=== PATIENT | female | born 2000 | race American Indian/Alaskan Native ===

== ENCOUNTER 2020-11-24 14:44 | Outpatient (CLI) | payer MEDICAID ==
[2020-11-24] MEDS ORDERED: LACTATED RINGERS 1,000 ML ONE (15:43)
[2020-11-24 15:57] VITALS: BP 125/76
[2020-11-24] MEDS ORDERED: LACTATED RINGERS 500 ML IV ONE (16:15)
[2020-11-24] MEDS ORDERED: PROMETHAZINE 25 MG TAB PO PRN (16:19)
[2020-11-24 16:31] LABS: Bacteria,Urine 1+ /HPF (Negative); Bilirubin,Urine NEG (Negative); Blood,Urine NEG (Negative); Color,Urine Yellow (Yellow); Mucus,Urine FEW /HPF; Protein,Urine <15 mg/dL mg/dL (Negative)
== END 2020-11-24 17:04 | disposition home or self-care (01) ==
LOC: TRG 14:44 → APU 14:48 → TRG 17:04
PROVIDERS: ATTEND Obstetrics & Gynecology
DX: O60.02 Preterm labor without delivery, second trimester (principal); Z3A.24 24 weeks gestation of pregnancy
CPT/HCPCS: 81001; J7120

== ENCOUNTER 2021-01-01 18:06 | Outpatient (CLI) | payer MEDICAID ==
[2021-01-01] MEDS ORDERED: LACTATED RINGERS 1,000 ML IV ONE (18:37)
[2021-01-01] MEDS ORDERED: ONDANSETRON 4 MG/2 ML INJ IV ONE (19:19)
[2021-01-01 19:22] LABS: Hematocrit 35.1 % (30.3-42.9); Hemoglobin 12.1 gm/dl (10.1-14.3); Mean Corpuscular HGB Conc 34 % (30-34); Mean Corpuscular Volume 86 fl (79-97); Platelet Count 180 K/mm3 (140-440); Red Cell Distribution Width 14.1 % (13.2-15.2)
[2021-01-01 19:25] LABS: Bacteria,Urine 2+ /HPF (Negative); Bilirubin,Urine NEG (Negative); Blood,Urine NEG (Negative); Color,Urine Amber (Yellow); Hyaline Casts,Urine 1 /LPF; Mucus,Urine FEW /HPF
[2021-01-01 20:00] LABS: Band Neutrophils # (Manual) 0.1 K/mm3; Total Cells Counted 100
[2021-01-01 20:01] LABS: Platelet Estimate Consistent w Auto; RBC Morphology Normal; Toxic Granulation 1+
[2021-01-01 20:09] LABS: Alanine Aminotransferase 17 units/L (7-56); Albumin 3.7 g/dL (3.9-5); Blood Urea Nitrogen 7 mg/dL (7-17); Calcium 9.1 mg/dL (8.4-10.2); Hemolysis Index 26
[2021-01-01 20:13] LABS: BUN/Creatinine Ratio 12
[2021-01-01] MEDS ORDERED: TERBUTALINE 1 MG/1 ML INJ SUB-Q ONE (20:21)
[2021-01-01 20:43] VITALS: BP 121/80
== END 2021-01-01 21:40 | disposition home or self-care (01) ==
LOC: TRG 18:06 → APU 18:07 → TRG 21:40
PROVIDERS: ATTEND Obstetrics & Gynecology
DX: O21.2 Late vomiting of pregnancy (principal); R19.7 Diarrhea, unspecified; R42 Dizziness and giddiness; O26.893 Other specified pregnancy related conditions, third trimester; M54.5 Low back pain; R10.30 Lower abdominal pain, unspecified; R51.9 Headache, unspecified; Z3A.29 29 weeks gestation of pregnancy
CPT/HCPCS: 36415; 59025; 80053; 81001; 85025; 87086; 96361; 96365; 96367; 96372; J0690; J2405; J3105; J7120; 85007; 96360

== ENCOUNTER 2021-01-15 05:14 | Outpatient (CLI) | payer MEDICAID ==
[2021-01-15] MEDS ORDERED: LACTATED RINGERS 1,000 ML IV ONE (05:56)
[2021-01-15 06:41] LABS: Basophils # (Auto) 0.1 K/mm3 (0.0-0.1); Basophils % (Auto) 0.4 % (0.0-1.8); Eosinophils # (Auto) 0.1 K/mm3 (0.0-0.4); Eosinophils % (Auto) 0.6 % (0.0-4.3); Hematocrit 35.2 % (30.3-42.9); Hemoglobin 12.4 gm/dl (10.1-14.3); Lymphocytes # (Auto) 1.2 K/mm3 (1.2-5.4); Lymphocytes % (Auto) 9.2 % (13.4-35.0); Mean Corpuscular HGB Conc 35 % (30-34); Mean Corpuscular Volume 87 fl (79-97); Monocytes # (Auto) 0.7 K/mm3 (0.0-0.8); Monocytes % (Auto) 5.3 % (0.0-7.3); Platelet Count 146 K/mm3 (140-440); Red Blood Count 4.07 M/mm3 (3.65-5.03); Red Cell Distribution Width 13.9 % (13.2-15.2)
--- NOTE | 2021-01-15 07:16 | Ultrasound Report ---
Biophysical profile Limited abdominal ultrasound FINDINGS: Single live intrauterine in cephalic position with heart rate 1 47 bpm. BARBARA measures 9.8. 31 weeks 3 days. Placenta is anterior. Biophysical profile is 8 out of 8 IMPRESSION: Single live intrauterine . Biophysical profile 8 out of 8. Signer Name: Renny Murillo MD Signed: 01/15/2021 7:12 AM Workstation Name: [id number]
[2021-01-15 07:41] VITALS: BP 120/89
== END 2021-01-15 09:54 | disposition home or self-care (01) ==
LOC: TRG 05:14 → APU 05:14 → TRG 09:54
PROVIDERS: ATTEND Obstetrics & Gynecology
DX: O26.893 Other specified pregnancy related conditions, third trimester (principal); W19.XXXA Unspecified fall, initial encounter; Y93.89 Activity, other specified; Y92.89 Other specified places as the place of occurrence of the external cause; Y99.8 Other external cause status; Z3A.31 31 weeks gestation of pregnancy
CPT/HCPCS: 36415; 59025; 76815; 76819; 85025; 86850; 86900; 86901

== ENCOUNTER 2021-02-14 11:58 | Outpatient (CLI) | payer MEDICAID ==
[2021-02-14] MEDS ORDERED: LACTATED RINGERS 500 ML IV ONE (13:20)
[2021-02-14 14:59] LABS: Alanine Aminotransferase 12 units/L (7-56); Uric Acid 5.5 mg/dL (3.5-7.6)
[2021-02-14 15:00] LABS: Color,Urine Amber (Yellow)
[2021-02-14 15:01] LABS: Bilirubin,Urine Negative (Negative); Blood,Urine Negative (Negative)
[2021-02-14 15:02] LABS: Bacteria,Urine 1+ /HPF (Negative); Mucus,Urine FEW /HPF
[2021-02-14 15:25] LABS: Basophils % (Auto) 0.2 % (0.0-1.8); Eosinophils # (Auto) 0.1 K/mm3 (0.0-0.4); Eosinophils % (Auto) 0.7 % (0.0-4.3); Hematocrit 34.6 % (30.3-42.9); Hemoglobin 11.9 gm/dl (10.1-14.3); Lymphocytes # (Auto) 1.6 K/mm3 (1.2-5.4); Lymphocytes % (Auto) 13.5 % (13.4-35.0); Mean Corpuscular HGB Conc 35 % (30-34); Mean Corpuscular Volume 86 fl (79-97); Monocytes # (Auto) 0.5 K/mm3 (0.0-0.8); Monocytes % (Auto) 4.3 % (0.0-7.3); Platelet Count 141 K/mm3 (140-440); Red Blood Count 4.04 M/mm3 (3.65-5.03); Red Cell Distribution Width 14.1 % (13.2-15.2)
[2021-02-14 16:12] VITALS: BP 137/84
== END 2021-02-14 16:42 | disposition home or self-care (01) ==
LOC: TRG 11:58 → APU 11:59 → TRG 16:42
PROVIDERS: ATTEND Obstetrics & Gynecology
DX: O13.3 Gestational [pregnancy-induced] hypertension without significant proteinuria, third trimester (principal); Z3A.35 35 weeks gestation of pregnancy
CPT/HCPCS: 36415; 81001; 82565; 83615; 84450; 84460; 84550; 85025; 86850; 86900; 86901; 87086

== ENCOUNTER 2021-02-16 11:33 | Inpatient (IN) | payer MEDICAID ==
[2021-02-16] MEDS ORDERED: OXYTOCIN DRIP 30 UNITS/500 ML BAG IV SCH (12:00)
[2021-02-16] MEDS ORDERED: LACTATED RINGERS 1,000 ML IV SCH (12:00)
[2021-02-16] MEDS ORDERED: ACETAMINOPHEN 325 MG TAB PO PRN (12:30)
[2021-02-16] MEDS ORDERED: LOPERAMIDE 2 MG CAP PO PRN (12:30)
[2021-02-16] MEDS ORDERED: miSOPROStol 200 MCG TAB PR PRN (12:30)
[2021-02-16] MEDS ORDERED: ONDANSETRON 4 MG/2 ML INJ IV PRN (12:30)
[2021-02-16] MEDS ORDERED: BUTORPHANOL 2 MG/1 ML INJ IV PRN (12:30)
[2021-02-16] MEDS ORDERED: ePHEDrine SULFATE 50 MG/1 ML INJ IV PRN (12:30)
[2021-02-16] MEDS ORDERED: NalbUPHINE 10 MG/1 ML INJ IV PRN (12:30)
[2021-02-16] MEDS ORDERED: LIDOCAINE (2%) 20 MG/1 ML VIAL 20 ML MDV INFILTRATI SCH (12:30)
[2021-02-16] MEDS ORDERED: CARBOPROST TROMETHAMINE 250 MCG/1 ML INJ IM PRN (12:30)
[2021-02-16] MEDS ORDERED: METHYLERGONOVINE MALEATE 0.2 MG/ML VIAL IM PRN (12:30)
[2021-02-16] MEDS ORDERED: AMPICILLIN/NS 2 GM/100 ML 2 GM/100 ML BAG IV SCH (12:30)
[2021-02-16] MEDS ORDERED: MINERAL OIL 30 ML ORAL LIQD PO PRN (12:30)
[2021-02-16] MEDS ORDERED: TERBUTALINE 1 MG/1 ML INJ SUB-Q PRN (12:30)
[2021-02-16] MEDS ORDERED: OXYTOCIN 10 UNIT/1 ML INJ IM PRN (12:30)
[2021-02-16 13:27] LABS: Hemoglobin 12.4 gm/dl (10.1-14.3); Mean Corpuscular HGB Conc 34 % (30-34); Mean Corpuscular Volume 86 fl (79-97); Platelet Count 147 K/mm3 (140-440); Red Cell Distribution Width 14.6 % (13.2-15.2)
[2021-02-16 13:42] LABS: Alanine Aminotransferase 14 units/L (7-56); Albumin 3.7 g/dL (3.9-5); Blood Urea Nitrogen 8 mg/dL (7-17); Calcium 9.5 mg/dL (8.4-10.2); Hemolysis Index 2
[2021-02-16 13:43] LABS: BUN/Creatinine Ratio 16; Bilirubin,Direct < 0.2 mg/dL (0-0.2)
[2021-02-16] MEDS ORDERED: DINOPROSTONE 10 MG VAG SUPP VG ONE (14:42)
--- NOTE | 2021-02-16 16:10 | History and Physical Report ---
History of Present Illness Date of examination: 02/16/21 Date of admission: 02/16/21 11:33 Chief complaint: IOL secondary to PIH History of present illness: 20yo, @ 36 wks, initiated care with [facility] at 9 weeks gestation. Her has been complicated by H/O Hodgkin's Lymphoma (S/P chemo and stem cell transplant with recurrence in 2018, in remission, followed by PATRICK), and obesity (co-managed by JEFFERY). She was sent to [facility] from [facility] with recommendations for IOL secondary to elevated B/Ps. Reports +FM. Denies any VB or LOF. Labs: B+, antibody negative; rubella immune; HBsAg negative; HIV negative; GC/Chlamydia/Trich negative; VDRL negative; Hep CAb negative; 1 hr gtt - 86; GBS negative. Past History Past Medical History: other (Hodgkins Lymphoma: 03/2018) Past Surgical History: [employer]/uterine surgery, other (Chemo therapy; Dory cath) Family/Genetic History: diabetes (MGM) Social history: single, full code. denies: smoking, alcohol abuse, prescription drug abuse, IV drug use - Obstetrical History Expected Date of Delivery: 03/16/21 Actual Gestation: 36 Week(s) 0 Day(s) : 2 Para: 0 Hx # Term Pregnancies: 0 Number of Pregnancies: 0 Spontaneous Abortions: 1 Induced : 0 Number of Living Children: 0 Medications and Allergies Allergies Allergy/AdvReac Type Severity Reaction Status Date / Time biocclusive Allergy Severe Hives Uncoded 02/14/21 12:19 Active Meds: Active Medications Acetaminophen (Acetaminophen 325 Mg Tab) 650 mg PO Q4H PRN PRN Reason: Pain, Mild (1-3) Butorphanol Tartrate (Butorphanol 2 Mg/1 Ml Inj) 2 mg IV Q2H PRN PRN Reason: Pain , Severe (7-10) Carboprost Tromethamine (Carboprost Tromethamine 250 Mcg/1 Ml Inj) 250 mcg IM ONCE PRN PRN Reason: Uterine Bleeding Ephedrine Sulfate (Ephedrine Sulfate 50 Mg/1 Ml Inj) 10 mg IV Q2M PRN PRN Reason: Hypotension Fentanyl (Fentanyl 100 Mcg/2 Ml Inj) 100 mcg IV Q2H PRN PRN Reason: Pain,Severe (7-10) LABOR PAIN Hydralazine HCl (Hydralazine 20 Mg/1 Ml Inj) 5 mg IV Q30MIN PRN PRN Reason: Hypertension Lactated Ringer's (Lactated Ringers) 1,000 mls @ 125 mls/hr IV DIRECT ISHAN Oxytocin/Sodium Chloride (Pitocin/Ns 30 Unit/500ml) 30 units in 500 mls @ 40 mls/hr IV TITR ISHAN; Protocol Ampicillin Sodium (Ampicillin/Ns 1 Gm/50 Ml) 1 gm in 50 mls @ 100 mls/hr IV Q4H ISHAN; Protocol Lidocaine (Lidocaine (2%) 20 Mg/1 Ml Vial 20 Ml Mdv) 20 ml INFILTRATI ONCE ISHAN Stop: 02/17/21 12:29 Loperamide HCl (Loperamide 2 Mg Cap) 2 mg PO ONCE PRN PRN Reason: give with Hemabate Methylergonovine Maleate (Methylergonovine Maleate 0.2 Mg/Ml Vial) 0.2 mg IM ONCE PRN PRN Reason: Uterine Bleeding Mineral Oil (Mineral Oil 30 Ml Oral Liqd) 30 ml PO QHS PRN PRN Reason: Constipation Misoprostol (Misoprostol 200 Mcg Tab) 800 mcg IA ONCE PRN PRN Reason: Uterine Bleeding Nalbuphine HCl (Nalbuphine 10 Mg/1 Ml Inj) 10 mg IV Q2H PRN PRN Reason: Pain, Moderate (4-6) Ondansetron HCl (Ondansetron 4 Mg/2 Ml Inj) 4 mg IV Q8H PRN PRN Reason: Nausea And Vomiting Oxytocin (Oxytocin 10 Unit/1 Ml Inj) 10 unit IM ONCE PRN PRN Reason: Uterine Bleeding Terbutaline Sulfate (Terbutaline 1 Mg/1 Ml Inj) 0.25 mg SUB-Q ONCE PRN PRN Reason: Hyperstimulation/Hypertonicity Review of Systems All systems: negative - Vital Signs Vital signs: Vital Signs Pulse BP Pulse Ox 78 148/97 93 02/16/21 12:22 02/16/21 12:22 02/16/21 12:22 Temp Pulse Resp BP Pulse Ox 98.9 F 79 140/79 99 02/16/21 12:36 02/16/21 15:52 02/16/21 15:52 02/16/21 15:08 - Physical Exam Breasts: Positive: normal Cardiovascular: Regular rate Lungs: Positive: Normal air movement Abdomen: Positive: other (gravid) Uterus: Positive: enlarged (S=D) Extremities: Positive: edema Deep Tendon Reflex Grade: Normal +2 - Obstetrical FHR: category 1 Uterine Contraction Monitor Mode: External Cervical Dilatation: 0 station: -3 Uterine Contraction Pattern: Absent Uterine Tone Measurement Phase: Resting Results Result Diagrams: 02/16/21 13:05 02/16/21 13:05 Abnormal lab results 02/16/21 Range/Units 13:05 Potassium 3.4 L (3.6-5.0) mmol/L Creatinine 0.5 L (0.6-1.2) mg/dL Alkaline Phosphatase 155 H (35-129) units/L Albumin 3.7 L (3.9-5) g/dL All other labs normal. Assessment and Plan - Patient Problems (1) PIH ( induced hypertension), antepartum Current Visit: Yes Status: Acute Plan to address problem: Admit to L&D Monitor B/Ps, notify for provider for any SBP>160 and/or DBP>110 Cervidil x 12hrs as tolerated Pain meds as desired per orders Cervical exam post cervidil removal (2) Obesity affecting in third trimester, antepartum Current Visit: Yes Status: Acute
[2021-02-16] MEDS: fentaNYL 100 MCG/2 ML INJ IV PRN ×2 (18:01→21:41)
[2021-02-16] MEDS: LACTATED RINGERS 1,000 ML IV SCH (20:07)
--- NOTE | 2021-02-17 08:30 | Progress Note ---
Assessment and Plan - Patient Problems (1) Obesity affecting in third trimester, antepartum Current Visit: Yes Status: Acute Plan to address problem: Continue induction as planned (2) PIH ( induced hypertension), antepartum Current Visit: Yes Status: Acute Subjective - Subjective Date of service: 02/17/21 Interval history: 20y/o @36+1 weeks being admitted for induction secondary to non-Hodgkin's lymphoma status post chemotherapy treatment. The patient received Cervidil overnight. She denies leakage of fluid. Cervidil has been removed with findings of cervical dilatation of 1 to 2 cm. Cook catheter was placed and patient initiated on low-dose Pitocin Patient reports: no new complaints Objective - Vital Signs Vital Signs: Vital Signs - 12hr 02/16/21 02/16/21 02/16/21 20:33 20:38 20:43 Temperature Pulse Rate 77 81 86 Blood Pressure O2 Sat by Pulse 98 99 98 Oximetry 02/16/21 02/16/21 02/16/21 20:48 20:52 20:53 Temperature Pulse Rate 84 70 72 Blood Pressure 155/100 O2 Sat by Pulse 99 98 Oximetry 02/16/21 02/16/21 02/16/21 20:58 21:03 21:08 Temperature Pulse Rate 78 76 79 Blood Pressure O2 Sat by Pulse 98 98 98 Oximetry 02/16/21 02/16/21 02/16/21 21:13 21:18 21:22 Temperature Pulse Rate 82 84 88 Blood Pressure 136/83 O2 Sat by Pulse 98 99 Oximetry 02/16/21 02/16/21 02/16/21 21:23 21:28 21:33 Temperature Pulse Rate 96 H 88 96 H Blood Pressure O2 Sat by Pulse 98 99 99 Oximetry 02/16/21 02/16/21 02/16/21 21:38 21:43 21:48 Temperature Pulse Rate 82 82 85 Blood Pressure O2 Sat by Pulse 99 98 96 Oximetry 02/16/21 02/16/21 02/16/21 21:52 21:53 21:58 Temperature Pulse Rate 85 92 H 81 Blood Pressure 142/84 O2 Sat by Pulse 97 97 Oximetry 02/16/21 02/16/21 02/16/21 22:03 22:08 22:13 Temperature Pulse Rate 80 78 86 Blood Pressure O2 Sat by Pulse 97 96 97 Oximetry 07/02/16/21 02/16/21 22:15 22:18 22:23 Temperature Pulse Rate 105 H 83 91 H Blood Pressure 137/99 O2 Sat by Pulse 98 99 Oximetry 02/16/21 02/16/21 02/16/21 22:28 22:33 22:50 Temperature Pulse Rate 127 H 105 H 102 H Blood Pressure O2 Sat by Pulse 99 98 98 Oximetry 02/16/21 02/16/21 02/16/21 22:51 22:52 22:55 Temperature Pulse Rate 84 88 81 Blood Pressure 147/98 141/93 O2 Sat by Pulse 98 Oximetry 02/16/21 02/16/21 02/16/21 23:00 23:05 23:10 Temperature Pulse Rate 83 90 87 Blood Pressure O2 Sat by Pulse 99 99 99 Oximetry 02/16/21 02/16/21 02/16/21 23:15 23:20 23:23 Temperature Pulse Rate 71 82 80 Blood Pressure 178/95 O2 Sat by Pulse 99 99 Oximetry 02/16/21 02/16/21 02/16/21 23:25 23:30 23:35 Temperature Pulse Rate 79 78 79 Blood Pressure O2 Sat by Pulse 99 98 98 Oximetry 02/16/21 02/16/21 02/16/21 23:40 23:44 23:45 Temperature Pulse Rate 77 82 79 Blood Pressure 139/97 O2 Sat by Pulse 98 99 Oximetry 02/16/21 02/16/21 02/16/21 23:50 23:52 23:55 Temperature Pulse Rate 76 73 86 Blood Pressure 142/88 O2 Sat by Pulse 98 96 Oximetry 02/17/21 02/17/21 02/17/21 00:00 00:05 00:10 Temperature Pulse Rate 93 H 107 H 85 Blood Pressure O2 Sat by Pulse 96 98 97 Oximetry 02/17/21 02/17/21 02/17/21 00:15 00:20 00:22 Temperature Pulse Rate 86 80 95 H Blood Pressure 137/95 O2 Sat by Pulse 97 98 Oximetry 02/17/21 02/17/21 02/17/21 00:25 00:30 00:35 Temperature Pulse Rate 81 94 H 80 Blood Pressure O2 Sat by Pulse 98 99 98 Oximetry 02/17/21 02/17/21 02/17/21 00:40 00:45 00:50 Temperature Pulse Rate 86 104 H 92 H Blood Pressure O2 Sat by Pulse 99 98 100 Oximetry 02/17/21 02/17/21 02/17/21 00:53 00:55 01:00 Temperature Pulse Rate 80 89 90 Blood Pressure 159/103 O2 Sat by Pulse 99 98 Oximetry 02/17/21 02/17/21 02/17/21 01:05 01:10 01:15 Temperature Pulse Rate 90 81 82 Blood Pressure O2 Sat by Pulse 98 99 99 Oximetry 02/17/21 02/17/21 02/17/21 01:20 01:22 01:25 Temperature Pulse Rate 73 74 92 H Blood Pressure 143/95 O2 Sat by Pulse 98 98 Oximetry 02/17/21 02/17/21 02/17/21 01:30 01:35 01:40 Temperature Pulse Rate 82 88 87 Blood Pressure O2 Sat by Pulse 99 97 97 Oximetry 02/17/21 02/17/21 02/17/21 01:45 01:50 01:52 Temperature Pulse Rate 91 H 88 80 Blood Pressure 138/92 O2 Sat by Pulse 98 98 Oximetry 02/17/21 02/17/21 02/17/21 01:55 02:00 02:05 Temperature Pulse Rate 92 H 100 H 85 Blood Pressure O2 Sat by Pulse 96 97 97 Oximetry 02/17/21 02/17/21 02/17/21 02:10 02:15 02:20 Temperature Pulse Rate 90 99 H 75 Blood Pressure O2 Sat by Pulse 99 97 98 Oximetry 02/17/21 02/17/21 02/17/21 02:23 02:25 02:30 Temperature Pulse Rate 82 92 H 86 Blood Pressure 164/99 O2 Sat by Pulse 99 98 Oximetry 02/17/21 02/17/21 02/17/21 02:34 02:35 02:40 Temperature Pulse Rate 90 95 H 82 Blood Pressure 182/96 166/83 O2 Sat by Pulse 99 98 Oximetry 02/17/21 02/17/21 02/17/21 02:45 02:50 02:52 Temperature Pulse Rate 101 H 115 H 77 Blood Pressure 147/91 O2 Sat by Pulse 99 100 Oximetry 02/17/21 02/17/21 02/17/21 02:55 03:00 03:05 Temperature Pulse Rate 89 89 73 Blood Pressure O2 Sat by Pulse 98 99 98 Oximetry 02/17/21 02/17/21 02/17/21 03:10 03:15 03:20 Temperature Pulse Rate 87 93 H 78 Blood Pressure O2 Sat by Pulse 98 97 99 Oximetry 02/17/21 02/17/21 02/17/21 03:24 03:25 03:30 Temperature Pulse Rate 94 H 89 85 Blood Pressure 139/91 O2 Sat by Pulse 98 99 Oximetry 02/17/21 02/17/21 02/17/21 03:35 03:40 03:45 Temperature Pulse Rate 78 80 88 Blood Pressure O2 Sat by Pulse 98 97 96 Oximetry 02/17/21 02/17/21 02/17/21 03:50 03:52 03:55 Temperature Pulse Rate 83 65 70 Blood Pressure 134/76 O2 Sat by Pulse 94 95 Oximetry 02/17/21 02/17/21 02/17/21 03:57 04:00 04:03 Temperature Pulse Rate 79 73 77 Blood Pressure O2 Sat by Pulse 94 95 93 Oximetry 02/17/21 02/17/21 02/17/21 04:05 04:10 04:13 Temperature Pulse Rate 71 71 81 Blood Pressure O2 Sat by Pulse 95 95 94 Oximetry 02/17/21 02/17/21 02/17/21 04:15 04:20 04:22 Temperature Pulse Rate 74 75 85 Blood Pressure O2 Sat by Pulse 95 95 93 Oximetry 02/17/21 02/17/21 02/17/21 04:23 04:25 04:30 Temperature Pulse Rate 70 77 85 Blood Pressure 135/75 O2 Sat by Pulse 95 94 Oximetry 02/17/21 02/17/21 02/17/21 04:35 04:37 04:40 Temperature Pulse Rate 72 83 77 Blood Pressure O2 Sat by Pulse 95 93 95 Oximetry 02/17/21 02/17/21 02/17/21 04:43 04:45 04:46 Temperature 98.7 F Pulse Rate 79 88 Blood Pressure O2 Sat by Pulse 95 94 Oximetry 02/17/21 02/17/21 02/17/21 04:50 04:51 04:52 Temperature Pulse Rate 78 92 H 65 Blood Pressure 137/75 O2 Sat by Pulse 95 94 Oximetry 02/17/21 02/17/21 02/17/21 04:55 05:00 05:04 Temperature Pulse Rate 86 73 89 Blood Pressure O2 Sat by Pulse 95 95 94 Oximetry 02/17/21 02/17/21 02/17/21 05:05 05:10 05:15 Temperature Pulse Rate 77 78 71 Blood Pressure O2 Sat by Pulse 96 96 96 Oximetry 02/17/21 02/17/21 02/17/21 05:20 05:22 05:25 Temperature Pulse Rate 78 64 77 Blood Pressure 135/80 O2 Sat by Pulse 94 96 Oximetry 02/17/21 02/17/21 02/17/21 05:28 05:30 05:35 Temperature Pulse Rate 82 73 85 Blood Pressure O2 Sat by Pulse 93 97 96 Oximetry 02/17/21 02/17/21 02/17/21 05:40 05:45 05:50 Temperature Pulse Rate 83 68 90 Blood Pressure O2 Sat by Pulse 96 98 97 Oximetry 02/17/21 02/17/21 02/17/21 05:53 05:55 06:00 Temperature Pulse Rate 84 112 H 79 Blood Pressure 182/94 O2 Sat by Pulse 98 97 Oximetry 02/17/21 02/17/21 02/17/21 06:05 06:10 06:15 Temperature Pulse Rate 83 75 100 H Blood Pressure 139/94 O2 Sat by Pulse 98 99 98 Oximetry 02/17/21 02/17/21 02/17/21 06:20 06:22 06:25 Temperature Pulse Rate 75 74 73 Blood Pressure 124/81 O2 Sat by Pulse 97 97 Oximetry 02/17/21 02/17/21 02/17/21 06:30 06:35 06:40 Temperature Pulse Rate 73 75 69 Blood Pressure O2 Sat by Pulse 97 97 97 Oximetry 02/17/21 02/17/21 02/17/21 06:45 06:50 06:52 Temperature Pulse Rate 73 75 63 Blood Pressure 135/78 O2 Sat by Pulse 98 97 Oximetry 02/17/21 02/17/21 02/17/21 06:55 07:00 07:05 Temperature Pulse Rate 73 72 78 Blood Pressure O2 Sat by Pulse 97 100 97 Oximetry 02/17/21 02/17/21 02/17/21 07:10 07:15 08:00 Temperature Pulse Rate 94 H 99 H 81 Blood Pressure 188/92 O2 Sat by Pulse 98 98 Oximetry 02/17/21 02/17/21 02/17/21 08:01 08:03 08:23 Temperature Pulse Rate 80 85 86 Blood Pressure 173/112 150/97 186/108 O2 Sat by Pulse Oximetry 02/17/21 08:28 Temperature Pulse Rate 77 Blood Pressure 173/107 O2 Sat by Pulse Oximetry - Exam Cervical Dilatation: 1.5 Cervical Effacement Percentage: 60 - Labs Labs: Abnormal Labs 02/16/21 13:05 Potassium 3.4 L Creatinine 0.5 L Alkaline Phosphatase 155 H Albumin 3.7 L Laboratory Results - last 24 hr 02/16/21 02/16/21 02/16/21 13:05 13:05 13:05 WBC 11.0 RBC 4.30 Hgb 12.4 Hct 37.0 MCV 86 MCH 29 MCHC 34 RDW 14.6 Plt Count 147 Sodium 140 Potassium 3.4 L Chloride 102.1 Carbon Dioxide 23 Anion Gap 18 BUN 8 Creatinine 0.5 L Estimated GFR > 60 BUN/Creatinine Ratio 16 Glucose 70 Uric Acid 5.3 Calcium 9.5 Total Bilirubin 0.40 Direct Bilirubin < 0.2 Indirect Bilirubin 0.2 AST 18 ALT 14 Alkaline Phosphatase 155 H Total Protein 6.3 Albumin 3.7 L Albumin/Globulin Ratio 1.4 Blood Type Antibody Screen 02/16/21 13:05 WBC RBC Hgb Hct MCV MCH MCHC RDW Plt Count Sodium Potassium Chloride Carbon Dioxide Anion Gap BUN Creatinine Estimated GFR BUN/Creatinine Ratio Glucose Uric Acid Calcium Total Bilirubin Direct Bilirubin Indirect Bilirubin AST ALT Alkaline Phosphatase Total Protein Albumin Albumin/Globulin Ratio Blood Type B POSITIVE Antibody Screen Negative
[2021-02-17] MEDS: hydrALAZINE 20 MG/1 ML INJ IV PRN ×2 (08:37→08:56)
[2021-02-17] MEDS: LACTATED RINGERS 1,000 ML IV SCH (08:39)
[2021-02-17] MEDS: AMPICILLIN/NS 1 GM/50 ML 1 GM/50 ML BAG IV SCH ×3 (08:43→20:05)
[2021-02-17] MEDS: fentaNYL 100 MCG/2 ML INJ IV PRN ×3 (09:04→13:33)
[2021-02-17] MEDS ORDERED: AMPICILLIN 2 GM in SODIUM CHLORIDE 0.9% 50 ML IV ONE (11:07)
[2021-02-17] MEDS ORDERED: AMPICILLIN/NS 2 GM/100 ML 2 GM/100 ML BAG IV SCH (11:30)
[2021-02-17] MEDS ORDERED: AMMONIA INHALANT IH ONE (18:51)
[2021-02-17] MEDS ORDERED: NALOXONE 2 MG/2 ML INJ IV PRN (19:12)
[2021-02-17] MEDS ORDERED: ePHEDrine SULFATE 50 MG/1 ML INJ IV PRN (19:12)
--- NOTE | 2021-02-17 19:16 | Anesthesia Consultation ---
Anesthesia Consult and Med Hx Date of service: 02/17/21 - Airway Anesthetic Teeth Evaluation: Good, Poor ROM Head & Neck: Adequate Mental/Hyoid Distance: Adequate Mallampati Class: Class II Intubation Access Assessment: Good - Pulmonary Exam CTA: Yes - Cardiac Exam Cardiac Exam: RRR - Pre-Operative Health Status ASA Pre-Surgery Classification: ASA2 Proposed Anesthetic Plan: Epidural - Pulmonary Hx Smoking: No Hx Asthma: No Hx Respiratory Symptoms: No SOB: No COPD: No Home Oxygen Therapy: No Hx Pneumonia: No Hx Sleep Apnea: No - Cardiovascular System Hx Hypertension: Yes Hx Coronary Artery Disease: No Hx Heart Attack/AMI: No Hx Angina: No Hx Percutaneous Transluminal Coronary Angioplasty (PTCA): No Hx Cardia Arrhythmia: No Hx Pacemaker: No Hx Internal Defibrillator: No Hx Valvular Heart Disease: No Hx Heart Murmur: No Hx Peripheral Vascular Disease: No - Central Nervous System Hx Neuromuscular Disorder: No Hx Seizures: No CVA: No Hx Back Pain: Yes Hx Psychiatric Problems: No - Gastrointestinal Hx Ulcer: No Hx Gastroesophageal Reflux Disease: Yes - Endocrine Hx Renal Disease: No Hx End Stage Renal Disease: No Hx Cirrhosis: No Hx Liver Disease: No Hx Insulin Dependent Diabetes: No Hx Non-Insulin Dependent Diabetes: No Hx Thyroid Disease: No Hx Hypothyroidism: No Hx Hyperthyroidism: No - Hematic Hx Anemia: No Hx Sickle Cell Disease: No - Other Systems Hx Alcohol Use: No Hx Substance Use: No Hx Cancer: No Hx Obesity: Yes
--- NOTE | 2021-02-17 19:17 | Progress Note ---
Labor Epidural - Labor Epidural Start Time: 18:30 Stop Time: 18:56 Performed by:: MORENO MACHUCA Procedure: Patient is requesting a laboring epidural for laboring pain. Patient IDed, H&P reviewed, all questions and concerns were answered, and consent was signed. Timeout was performed at bedside. Patient in sitting position. Sterile prep and drape was performed. [3] ml of 1% lidocaine skin wheal at L[3]- L [4]. 18- gauge [employer] epidural needle was advanced to loss of resistance with saline technique 8cm. Negative CSF negative blood. Epidural catheter advanced to [12] centimeters. [NEGATIVE] Aspiration [NEGATIVE] test dose. Sterile dressing applied. Patient tolerated procedure.
[2021-02-17] MEDS: fentaNYL-BUPIV 2 MCG/ML-0.125% 200 MCG/100 ML BAG EPIDURAL SCH (19:59)
[2021-02-18] MEDS: AMPICILLIN/NS 1 GM/50 ML 1 GM/50 ML BAG IV SCH ×6 (01:07→21:21)
[2021-02-18] MEDS: fentaNYL-BUPIV 2 MCG/ML-0.125% 200 MCG/100 ML BAG EPIDURAL SCH ×3 (03:50→19:50)
--- NOTE | 2021-02-18 09:06 | Progress Note ---
Assessment and Plan IUP at 36 weeks here for induction of labor secondary to gestational hypertension. Pt comfortable with epidural. AROM for clear fluid. Continue with induction. Anticipate . Subjective - Subjective Date of service: 02/18/21 Principal diagnosis: IUP at 36 weeks, Gestational hypertension Patient reports: contractions, no new complaints Objective - Vital Signs Vital Signs: Vital Signs - 12hr 02/17/21 02/17/21 02/17/21 21:07 21:08 21:12 Temperature Pulse Rate 74 77 71 Respiratory Rate Blood Pressure 112/63 Blood Pressure [Right] O2 Sat by Pulse 97 97 Oximetry 02/17/21 02/17/21 02/17/21 21:17 21:22 21:24 Temperature Pulse Rate 78 79 76 Respiratory Rate Blood Pressure 108/56 Blood Pressure [Right] O2 Sat by Pulse 97 98 Oximetry 02/17/21 02/17/21 02/17/21 21:27 21:32 21:37 Temperature Pulse Rate 71 69 68 Respiratory Rate Blood Pressure Blood Pressure [Right] O2 Sat by Pulse 98 98 97 Oximetry 02/17/21 02/17/21 02/17/21 21:38 21:42 21:47 Temperature Pulse Rate 66 68 65 Respiratory Rate Blood Pressure 104/57 Blood Pressure [Right] O2 Sat by Pulse 98 97 Oximetry 02/17/21 02/17/21 02/17/21 21:52 21:53 21:57 Temperature Pulse Rate 65 63 67 Respiratory Rate Blood Pressure 104/57 Blood Pressure [Right] O2 Sat by Pulse 97 97 Oximetry 02/17/21 02/17/21 02/17/21 22:02 22:06 22:07 Temperature Pulse Rate 66 73 72 Respiratory Rate Blood Pressure 111/57 Blood Pressure [Right] O2 Sat by Pulse 96 94 96 Oximetry 02/17/21 02/17/21 02/17/21 22:12 22:17 22:22 Temperature Pulse Rate 71 67 67 Respiratory Rate Blood Pressure 106/57 Blood Pressure [Right] O2 Sat by Pulse 98 98 97 Oximetry 02/17/21 02/17/21 02/17/21 22:27 22:32 22:37 Temperature Pulse Rate 69 80 71 Respiratory Rate Blood Pressure 122/67 Blood Pressure [Right] O2 Sat by Pulse 97 98 99 Oximetry 02/17/21 02/17/21 02/17/21 22:42 22:47 22:52 Temperature Pulse Rate 75 70 65 Respiratory Rate Blood Pressure 119/66 Blood Pressure [Right] O2 Sat by Pulse 99 98 100 Oximetry 02/17/21 02/17/21 02/17/21 22:57 23:02 23:07 Temperature Pulse Rate 74 74 68 Respiratory Rate Blood Pressure Blood Pressure [Right] O2 Sat by Pulse 98 99 100 Oximetry 02/17/21 02/17/21 02/17/21 23:09 23:12 23:17 Temperature Pulse Rate 67 69 69 Respiratory Rate Blood Pressure 122/66 Blood Pressure [Right] O2 Sat by Pulse 100 98 Oximetry 02/17/21 02/17/21 02/17/21 23:22 23:27 23:32 Temperature Pulse Rate 79 87 81 Respiratory Rate Blood Pressure 115/65 Blood Pressure [Right] O2 Sat by Pulse 98 96 98 Oximetry 02/17/21 02/17/21 02/17/21 23:37 23:42 23:47 Temperature Pulse Rate 82 70 69 Respiratory Rate Blood Pressure 117/70 Blood Pressure [Right] O2 Sat by Pulse 98 98 98 Oximetry 02/17/21 02/17/21 02/17/21 23:52 23:53 23:57 Temperature Pulse Rate 72 65 68 Respiratory Rate Blood Pressure 118/61 Blood Pressure [Right] O2 Sat by Pulse 98 98 Oximetry 02/18/21 02/18/21 02/18/21 00:02 00:07 00:08 Temperature Pulse Rate 74 83 80 Respiratory Rate Blood Pressure 128/78 Blood Pressure [Right] O2 Sat by Pulse 99 99 Oximetry 02/18/21 02/18/21 02/18/21 00:12 00:17 00:22 Temperature Pulse Rate 72 73 65 Respiratory Rate Blood Pressure 115/64 Blood Pressure [Right] O2 Sat by Pulse 97 98 97 Oximetry 02/18/21 02/18/21 02/18/21 00:27 00:32 00:37 Temperature Pulse Rate 80 75 70 Respiratory Rate Blood Pressure 112/61 Blood Pressure [Right] O2 Sat by Pulse 97 98 98 Oximetry 02/18/21 02/18/21 02/18/21 00:42 00:47 00:52 Temperature Pulse Rate 73 70 73 Respiratory Rate Blood Pressure Blood Pressure [Right] O2 Sat by Pulse 97 97 95 Oximetry 02/18/21 02/18/21 02/18/21 00:53 00:57 01:02 Temperature Pulse Rate 65 70 72 Respiratory Rate Blood Pressure 112/57 Blood Pressure [Right] O2 Sat by Pulse 96 95 Oximetry 02/18/21 02/18/21 02/18/21 01:07 01:08 01:12 Temperature Pulse Rate 72 69 94 H Respiratory Rate Blood Pressure 118/63 Blood Pressure [Right] O2 Sat by Pulse 94 98 Oximetry 02/18/21 02/18/21 02/18/21 01:17 01:22 01:24 Temperature Pulse Rate 88 86 86 Respiratory Rate Blood Pressure 126/81 Blood Pressure [Right] O2 Sat by Pulse 98 99 Oximetry 02/18/21 02/18/21 02/18/21 01:27 01:30 01:32 Temperature 98.6 F Pulse Rate 96 H 74 Respiratory Rate Blood Pressure Blood Pressure [Right] O2 Sat by Pulse 98 98 Oximetry 02/18/21 02/18/21 02/18/21 01:37 01:42 01:47 Temperature Pulse Rate 75 90 78 Respiratory Rate Blood Pressure 128/80 Blood Pressure [Right] O2 Sat by Pulse 98 99 97 Oximetry 02/18/21 02/18/21 02/18/21 01:52 01:57 02:02 Temperature Pulse Rate 77 79 79 Respiratory Rate Blood Pressure 127/78 Blood Pressure [Right] O2 Sat by Pulse 98 97 97 Oximetry 02/18/21 02/18/21 02/18/21 02:07 02:12 02:17 Temperature Pulse Rate 67 71 71 Respiratory Rate Blood Pressure 129/84 Blood Pressure [Right] O2 Sat by Pulse 97 99 97 Oximetry 02/18/21 02/18/21 02/18/21 02:22 02:27 02:32 Temperature Pulse Rate 76 79 70 Respiratory Rate Blood Pressure 130/86 Blood Pressure [Right] O2 Sat by Pulse 97 97 96 Oximetry 02/18/21 02/18/21 02/18/21 02:37 02:42 02:47 Temperature Pulse Rate 67 70 69 Respiratory Rate Blood Pressure 130/83 Blood Pressure [Right] O2 Sat by Pulse 95 98 97 Oximetry 02/18/21 02/18/21 02/18/21 02:52 02:57 03:02 Temperature Pulse Rate 66 72 74 Respiratory Rate Blood Pressure 122/78 Blood Pressure [Right] O2 Sat by Pulse 97 97 97 Oximetry 02/18/21 02/18/21 02/18/21 03:07 03:08 03:12 Temperature Pulse Rate 68 72 69 Respiratory Rate Blood Pressure 124/72 Blood Pressure [Right] O2 Sat by Pulse 96 97 Oximetry 02/18/21 02/18/21 02/18/21 03:17 03:22 03:27 Temperature Pulse Rate 77 85 77 Respiratory Rate Blood Pressure 122/69 Blood Pressure [Right] O2 Sat by Pulse 96 97 97 Oximetry 02/18/21 02/18/21 02/18/21 03:32 03:37 03:39 Temperature Pulse Rate 76 77 71 Respiratory Rate Blood Pressure 122/75 Blood Pressure [Right] O2 Sat by Pulse 96 96 Oximetry 02/18/21 02/18/21 02/18/21 03:42 03:47 03:52 Temperature Pulse Rate 73 81 83 Respiratory Rate Blood Pressure Blood Pressure [Right] O2 Sat by Pulse 96 98 98 Oximetry 02/18/21 02/18/21 02/18/21 03:53 03:57 03:58 Temperature Pulse Rate 75 86 81 Respiratory Rate Blood Pressure 161/95 148/86 Blood Pressure [Right] O2 Sat by Pulse 99 Oximetry 02/18/21 02/18/21 02/18/21 04:02 04:07 04:08 Temperature Pulse Rate 82 73 67 Respiratory Rate Blood Pressure 140/84 Blood Pressure [Right] O2 Sat by Pulse 99 97 Oximetry 02/18/21 02/18/21 02/18/21 04:12 04:17 04:22 Temperature Pulse Rate 74 77 69 Respiratory Rate Blood Pressure 143/90 Blood Pressure [Right] O2 Sat by Pulse 96 98 98 Oximetry 02/18/21 02/18/21 02/18/21 04:27 04:32 04:37 Temperature Pulse Rate 98 H 76 86 Respiratory Rate Blood Pressure Blood Pressure [Right] O2 Sat by Pulse 97 99 99 Oximetry 02/18/21 02/18/21 02/18/21 04:39 04:42 04:47 Temperature Pulse Rate 93 H 79 77 Respiratory Rate Blood Pressure 137/95 Blood Pressure [Right] O2 Sat by Pulse 99 98 Oximetry 02/18/21 02/18/21 02/18/21 04:52 04:53 04:57 Temperature Pulse Rate 77 80 78 Respiratory Rate Blood Pressure 135/92 Blood Pressure [Right] O2 Sat by Pulse 98 98 Oximetry 02/18/21 02/18/21 02/18/21 05:02 05:07 05:12 Temperature Pulse Rate 86 79 84 Respiratory Rate Blood Pressure 137/89 Blood Pressure [Right] O2 Sat by Pulse 97 97 96 Oximetry 02/18/21 02/18/21 02/18/21 05:17 05:22 05:24 Temperature Pulse Rate 84 102 H 80 Respiratory Rate Blood Pressure 160/88 Blood Pressure [Right] O2 Sat by Pulse 97 95 Oximetry 02/18/21 02/18/21 02/18/21 05:27 05:32 05:37 Temperature Pulse Rate 94 H 100 H 80 Respiratory Rate Blood Pressure 143/82 Blood Pressure [Right] O2 Sat by Pulse 96 96 98 Oximetry 02/18/21 02/18/21 02/18/21 05:42 05:47 05:52 Temperature Pulse Rate 87 94 H 86 Respiratory Rate Blood Pressure Blood Pressure [Right] O2 Sat by Pulse 98 98 97 Oximetry 02/18/21 02/18/21 02/18/21 05:54 05:57 06:02 Temperature Pulse Rate 72 68 69 Respiratory Rate Blood Pressure 157/85 Blood Pressure [Right] O2 Sat by Pulse 96 96 Oximetry 02/18/21 02/18/21 02/18/21 06:07 06:09 06:12 Temperature Pulse Rate 69 79 68 Respiratory Rate Blood Pressure 165/100 Blood Pressure [Right] O2 Sat by Pulse 98 97 Oximetry 02/18/21 02/18/21 02/18/21 06:17 06:22 06:23 Temperature Pulse Rate 73 81 61 Respiratory Rate Blood Pressure 136/76 Blood Pressure [Right] O2 Sat by Pulse 96 96 Oximetry 02/18/21 02/18/21 02/18/21 06:27 06:32 06:37 Temperature Pulse Rate 72 78 71 Respiratory Rate Blood Pressure 125/71 Blood Pressure [Right] O2 Sat by Pulse 97 96 97 Oximetry 02/18/21 02/18/21 02/18/21 06:42 06:44 06:47 Temperature Pulse Rate 73 59 L 82 Respiratory Rate Blood Pressure Blood Pressure [Right] O2 Sat by Pulse 97 94 96 Oximetry 02/18/21 02/18/21 02/18/21 06:52 06:57 07:00 Temperature Pulse Rate 81 76 86 Respiratory Rate Blood Pressure 127/79 140/90 Blood Pressure [Right] O2 Sat by Pulse 96 97 Oximetry 07/02/18/21 02/18/21 07:01 07:02 07:07 Temperature 98.2 F Pulse Rate 79 69 102 H Respiratory 18 Rate Blood Pressure Blood Pressure 140/90 [Right] O2 Sat by Pulse 97 98 98 Oximetry 02/18/21 02/18/21 02/18/21 07:12 07:15 07:17 Temperature Pulse Rate 75 62 66 Respiratory Rate Blood Pressure 139/87 Blood Pressure [Right] O2 Sat by Pulse 97 97 Oximetry 02/18/21 02/18/21 02/18/21 07:22 07:27 07:31 Temperature Pulse Rate 71 68 75 Respiratory Rate Blood Pressure 135/84 Blood Pressure [Right] O2 Sat by Pulse 96 96 Oximetry 02/18/21 02/18/21 02/18/21 07:32 07:37 07:42 Temperature Pulse Rate 73 72 71 Respiratory Rate Blood Pressure Blood Pressure [Right] O2 Sat by Pulse 97 95 97 Oximetry 02/18/21 02/18/21 02/18/21 07:45 07:47 07:52 Temperature Pulse Rate 86 84 79 Respiratory Rate Blood Pressure 139/91 Blood Pressure [Right] O2 Sat by Pulse 99 99 Oximetry 02/18/21 02/18/21 02/18/21 07:57 08:00 08:02 Temperature Pulse Rate 66 71 83 Respiratory Rate Blood Pressure 137/90 Blood Pressure [Right] O2 Sat by Pulse 98 99 Oximetry 02/18/21 02/18/21 02/18/21 08:07 08:12 08:15 Temperature Pulse Rate 85 91 H 72 Respiratory Rate Blood Pressure 149/94 Blood Pressure [Right] O2 Sat by Pulse 99 99 Oximetry 02/18/21 02/18/21 02/18/21 08:17 08:22 08:27 Temperature Pulse Rate 77 73 69 Respiratory Rate Blood Pressure Blood Pressure [Right] O2 Sat by Pulse 98 98 98 Oximetry 02/18/21 02/18/21 02/18/21 08:30 08:32 08:37 Temperature Pulse Rate 70 65 73 Respiratory Rate Blood Pressure 137/89 Blood Pressure [Right] O2 Sat by Pulse 97 98 Oximetry 02/18/21 02/18/21 02/18/21 08:42 08:45 08:47 Temperature Pulse Rate 65 60 76 Respiratory Rate Blood Pressure 137/88 Blood Pressure [Right] O2 Sat by Pulse 99 98 Oximetry 02/18/21 02/18/21 08:52 08:57 Temperature Pulse Rate 76 89 Respiratory Rate Blood Pressure Blood Pressure [Right] O2 Sat by Pulse 99 99 Oximetry - Exam Breasts: deferred Cardiovascular: Regular rate, Normal S1, Normal S2 Lungs: Clear to auscultation, Normal air movement Abdomen: Present: normal appearance, soft, normal bowel sounds Cervical Dilatation: 6 Cervical Effacement Percentage: 70 station: -3 Uterine Contraction Pattern: Regular Uterine Tone Measurement Phase: Contraction Uterine Contraction Intensity: Moderate Extremities: normal - Labs Labs: Abnormal Labs 02/16/21 13:05 Potassium 3.4 L Creatinine 0.5 L Alkaline Phosphatase 155 H Albumin 3.7 L Laboratory Results - last 24 hr 02/17/21 09:30 Coronavirus (PCR) Negative
[2021-02-18] MEDS: LACTATED RINGERS 1,000 ML IV SCH (15:39)
[2021-02-18] MEDS: hydrALAZINE 20 MG/1 ML INJ IV PRN ×2 (15:40→17:19)
[2021-02-18] MEDS ORDERED: MAGNESIUM SULFATE 4 GM/100 ML BAG IV ONE (17:51)
[2021-02-18] MEDS: MAGNESIUM SULFATE 40GM/1000ML 40 GM/1,000 ML BAG IV SCH (18:41)
--- NOTE | 2021-02-19 01:06 | Procedure Note ---
OB Delivery Note - Delivery Date of Delivery: 02/19/21 Surgeon: PRADIP PADILLA Estimated blood loss: 300cc - Vaginal Delivery presentation: vertex Delivery position: OA Intrapartum events: gestational hypertension Delivery induction: oxytocin Delivery augmentation: rupture of membranes Delivery monitor: external FHT, external uterine Route of delivery: Delivery placenta: spontaneous Delivery cord: 3 umbilical vessels Episiotomy: none Delivery laceration: none Anesthesia: epidural Delivery comments: Viable female delivered over intact perineum at 0038 a.m. Infant had spontaneous cry and was placed on maternal abdomen. Cord was clamped and cut and infant was handed to waiting NICU personnel. Weight 6 pounds 6 ounces. Apgars 8/9. Placenta was delivered spontaneously and intact with three-vessel cord. Patient had no lacerations. Fundus was difficult to palpate postdelivery and 10 mg of IM Pitocin was given in addition to Pitocin via IV. Excellent hemostasis. Patient tolerated procedure well. - Infant A at 1 minute: 8 at 5 minutes: 9 Infant Gender: Female (6 pounds 6 ounces)
[2021-02-19] MEDS ORDERED: WITCH HAZEL/ GLYCERIN PAD TP PRN (01:27)
[2021-02-19] MEDS ORDERED: MAGNESIUM HYDROXIDE (MOM) ORAL LIQD UDC PO PRN (01:27)
[2021-02-19] MEDS ORDERED: LANOLIN/ZINC/DIMETHICONE (LANSINOH) 7 GM TP PRN (01:27)
[2021-02-19] MEDS ORDERED: ONDANSETRON 4 MG/2 ML INJ IV PRN (01:27)
[2021-02-19] MEDS ORDERED: PROMETHAZINE 25 MG RECT SUPP PR PRN (01:27)
[2021-02-19] MEDS ORDERED: PROMETHAZINE 25 MG TAB PO PRN (01:27)
[2021-02-19] MEDS ORDERED: diphenhydrAMINE 25 MG CAP PO PRN (01:27)
[2021-02-19] MEDS: IBUPROFEN 600 MG TAB PO SCH ×2 (01:47→11:47)
[2021-02-19] MEDS: HYDROcodone/ACETAMINOPHEN 5-325 MG TAB PO PRN ×3 (03:10→23:11)
[2021-02-19] MEDS ORDERED: LACTATED RINGERS 1,000 ML ONE (09:14)
[2021-02-19] MEDS: LACTATED RINGERS 1,000 ML IV SCH (09:18)
[2021-02-19] MEDS: DOCUSATE SODIUM 100 MG CAP PO SCH (10:43)
[2021-02-19] MEDS: PRENATAL VIT27-FE FUMARATE-FOLIC ACID VIT TAB PO SCH (10:43)
[2021-02-19] MEDS: MAGNESIUM SULFATE 40GM/1000ML 40 GM/1,000 ML BAG IV SCH (11:48)
[2021-02-19 13:57] LABS: Hematocrit 29.7 % (30.3-42.9); Hemoglobin 10.3 gm/dl (10.1-14.3)
--- NOTE | 2021-02-19 18:50 | Event Note ---
Date: 02/19/21 Received call from nursing staff stating that patient did not want to stay on magnesium, and asked for it to be discontinued. Patient wanted to speak to me regarding the same. I spoke with the patient over the phone earlier on today and advised her that magnesium therapy was necessary for seizure prophylaxis in the cases of preeclampsia. I however advised her that we could not force her to remain on the medication. I advised the patient that if she were to stop the medication she would be at an increased risk for seizure, stroke, and even secondary to eclampsia and its sequelae. Advised the patient that if she were to discontinue the magnesium that it will be at her own risk, and that I would not place that order. Patient verbalized understanding.
--- NOTE | 2021-02-19 21:24 | Post Anesthesia Evaluation ---
- Post Anesthesia Evaluation Patient Participated: Yes Airway Patent: Yes Stable Respiratory Function: Yes Nausea/Vomiting: No Temp > 96.8F: Yes Pain Manageable: Yes Adequeate Hydration: Yes Anesthesia Complications: No Block Receding Appropriately: Yes Patient on Ventilator: No
[2021-02-20] MEDS ORDERED: LACTATED RINGERS 1,000 ML ONE (01:40)
[2021-02-20] MEDS ORDERED: LACTATED RINGERS 1,000 ML IV SCH (05:15)
[2021-02-20] MEDS: IBUPROFEN 600 MG TAB PO SCH ×4 (05:43→23:49)
[2021-02-20] MEDS: DOCUSATE SODIUM 100 MG CAP PO SCH ×2 (11:22→22:04)
[2021-02-20] MEDS: PRENATAL VIT27-FE FUMARATE-FOLIC ACID VIT TAB PO SCH (11:23)
--- NOTE | 2021-02-20 13:24 | Progress Note ---
Assessment and Plan A: PPD# 1 s/p at 36 wks Preeclampsia s/p magnesium sulfate for seizure prophylaxis Obesity P: Routine care Monitor BP curve Consider discharge later today or tomorrow Subjective - Subjective Date of service: 02/20/21 Principal diagnosis: IUP at 36 weeks, Preeclampsia, Obesity, h/o Non Hodgkins Lymphoma Interval history: Pt feels well today. She is looking forward to going home. Patient reports: appetite normal, voiding normally, pain well controlled, ambulating normally [place]: doing well Objective - Vital Signs Latest vital signs: Vital Signs Temp Pulse Resp BP BP Pulse Ox 02/20/21 08:00 98.2 F 74 20 127/77 98 02/20/21 06:42 18 02/20/21 05:43 18 02/20/21 04:28 97.9 F 73 18 145/93 99 02/20/21 03:42 81 137/84 02/20/21 03:35 82 128/82 02/20/21 03:05 86 137/93 02/20/21 02:35 82 136/93 02/20/21 02:05 89 126/83 02/20/21 01:35 77 118/75 02/20/21 01:05 98 H 137/85 02/20/21 00:35 78 137/91 02/20/21 00:05 82 135/90 02/19/21 23:54 86 137/97 02/19/21 23:52 85 150/100 02/19/21 23:35 85 161/96 02/19/21 23:05 82 152/95 02/19/21 22:36 82 152/95 02/19/21 22:35 78 122/76 02/19/21 22:05 71 134/91 02/19/21 21:35 95 H 145/86 02/19/21 21:05 92 H 135/94 02/19/21 20:35 90 156/105 02/19/21 20:26 89 144/94 02/19/21 20:22 88 162/104 02/19/21 19:05 104 H 121/90 02/19/21 18:35 89 131/87 02/19/21 17:35 102 H 133/84 02/19/21 17:05 99 H 131/85 02/19/21 16:35 95 H 136/87 02/19/21 16:05 106 H 139/93 02/19/21 15:35 92 H 132/86 02/19/21 14:43 22 02/19/21 14:35 82 115/65 02/19/21 14:05 83 139/95 02/19/21 13:43 22 Intake and Output 02/19/21 02/20/21 02/20/21 22:59 06:59 14:59 Output Total 350 900 200 Balance -350 -900 -200 Output: Urine 350 900 200 Indwelling Catheter 350 400 Uretheral (Branch) 500 Void 200 Other: Total, Output Amount 350 400 200 # Voids Void 1 - Exam Breasts: Present: deferred Abdomen: Present: soft (obese) Uterus: Present: fundal height below umbilicus Extremities: Present: edema (trace) - Labs Labs: Abnormal lab results 02/19/21 02/19/21 02/19/21 Range/Units 13:20 13:20 18:51 Hct 29.7 L (30.3-42.9) % Magnesium 4.90 H 5.20 H (1.7-2.3) mg/dL 02/20/21 Range/Units 00:29 Hct (30.3-42.9) % Magnesium 4.90 H (1.7-2.3) mg/dL
[2021-02-21] MEDS: IBUPROFEN 600 MG TAB PO SCH ×5 (06:54→18:34)
--- NOTE | 2021-02-21 08:35 | Progress Note ---
Assessment and Plan A: Continue with routine care BP mildly elevated P: Initiate Procardia Anticipate discharge later this evening Subjective - Subjective Date of service: 02/21/21 Principal diagnosis: IUP at 36 weeks, Preeclampsia, Obesity, h/o Non Hodgkins Lymphoma Interval history: PPD#2 s/p at 36wks. Patient is feeling well, reports no problems with ambulation, decreasing lochia and denies pain at this time. Patient reports: appetite normal, voiding normally, pain well controlled, ambulating normally : doing well Objective - Vital Signs Latest vital signs: Vital Signs Temp Pulse Resp BP Pulse Ox 02/21/21 04:22 98.2 F 63 20 143/82 99 02/20/21 23:49 18 02/20/21 23:41 98.9 F 64 20 141/81 98 02/20/21 22:05 69 148/66 02/20/21 17:25 98.4 F 148/85 Intake and Output 02/20/21 02/21/21 02/21/21 23:59 07:59 15:59 Intake Total 260 240 Output Total 600 Balance -340 240 Intake: Oral 260 240 Output: Urine 600 Void 600 Other: Total, Intake Amount 260 240 Total, Output Amount 600 # Voids Void 1 1
--- NOTE | 2021-02-21 08:36 | Discharge Summary ---
Providers - Providers Date of Admission: 02/16/21 11:33 Date of discharge: 02/21/21 Attending physician: NOY REINA Primary care physician: NOY REINA Hospitalization Reason for admission: active labor, IUP at term Delivery: Episiotomy: none Laceration: none Other procedures: none Discharge diagnosis: IUP at term delivered [place] baby: female Condition at discharge: Good Disposition: DC-01 TO HOME OR SELFCARE Plan - Discharge Medications Prescriptions: labetaloL [Labetalol 100mg TAB] 100 mg PO BID #60 tablet Ibuprofen [Motrin 800 MG tab] 800 mg PO Q8HR PRN #30 tablet PRN Reason: Pain, Moderate (4-6) NIFEdipine XL [Procardia Xl] 30 mg PO QDAY #30 tablet - Provider Discharge Summary Activity: routine, no sex for 6 weeks, no heavy lifting 4 weeks, no strenuous exercise Diet: routine Instructions: routine Additional instructions: [] Smoking cessation referral if applicable(refer to patient education folder for contact #) [] Refer to [facility] Booklet Call your doctor immediately for: * Fever > 100.5 * Heavy vaginal bleeding ( >1 pad per hour) * Severe persistent headache * Shortness of breath * Reddened, hot, painful area to leg or breast * Drainage or odor from incision. * Keep incision clean and dry at all times and follow doctor's instructions regarding bathing/showering Return to office on 02/23 for BP check - Follow up plan Follow up: NOY REINA MD [Primary Care Provider] - 14 Days
[2021-02-21] MEDS ORDERED: NIFEdipine XL 30 MG TAB PO SCH (09:00)
[2021-02-21] MEDS: PRENATAL VIT27-FE FUMARATE-FOLIC ACID VIT TAB PO SCH (10:16)
[2021-02-21] MEDS: DOCUSATE SODIUM 100 MG CAP PO SCH ×3 (10:16→21:47)
[2021-02-21] MEDS: hydrALAZINE 20 MG/1 ML INJ IV PRN (13:15)
--- NOTE | 2021-02-21 13:47 | Event Note ---
Date: 02/21/21 Notified that patient's BP was elevated at 164/113. Pt to receive hydralazine and Labetalol dose increased to 300mg BID. Discharge order discontinued, patient will be monitored for an additional night with discharge anticipated tomorrow morning.
[2021-02-22] MEDS: IBUPROFEN 600 MG TAB PO SCH ×2 (02:32→05:52)
[2021-02-22] MEDS ORDERED: NIFEdipine XL 30 MG TAB PO SCH (07:57)
[2021-02-22] MEDS ORDERED: NIFEdipine XL 60 MG TAB PO SCH (08:30)
[2021-02-22 08:52] VITALS: BP 136/88
== END 2021-02-22 09:30 | disposition home or self-care (01) | DRG 775 ==
LOC: LD 11:33 → OB 02-20 04:18
PROVIDERS: ADMIT Obstetrics & Gynecology; ATTEND Obstetrics & Gynecology
PROC: 10E0XZZ Delivery of Products of Conception, External Approach (ICD-10-PCS; principal; 2021-02-19)
PROC: 10907ZC Drainage of Amniotic Fluid, Therapeutic from Products of Conception, Via Natural or Artificial Opening (ICD-10-PCS; 2021-02-19)
PROC: 3E0R3BZ Introduction of Anesthetic Agent into Spinal Canal, Percutaneous Approach (ICD-10-PCS; 2021-02-19)
PROC: 00HU33Z Insertion of Infusion Device into Spinal Canal, Percutaneous Approach (ICD-10-PCS; 2021-02-19)
DX: O13.4 Gestational [pregnancy-induced] hypertension without significant proteinuria, complicating childbirth (principal); Z3A.36 36 weeks gestation of pregnancy; Z37.0 Single live birth; Z20.822 Contact with and (suspected) exposure to COVID-19; Z83.3 Family history of diabetes mellitus; Z88.8 Allergy status to other drugs, medicaments and biological substances; E66.01 Morbid (severe) obesity due to excess calories; O99.214 Obesity complicating childbirth; Z85.72 Personal history of non-Hodgkin lymphomas
CPT/HCPCS: 36415; 59200; 80048; 80076; 81001; 82565; 83615; 83735; 84450; 84460; 84550; 85014; 85018; 85025; 85027; 86850; 86900; 86901; 87086; G0378; J0290; J0360; J0595; J2405; J2590; J3010; J3475; J7120; U0003